=== PATIENT | male | born 1965 | race Caucasian/White ===

== ENCOUNTER 2019-09-01 20:33 | Emergency (ER) | payer BC ==
[~2019-09-01 20:33] MED LIST: GABA-531 PO
[2019-09-01] MEDS ORDERED: MORPHINE SULFATE 4 MG/1ML SYG ONE (23:47)
== END 2019-09-02 00:19 | disposition home or self-care (01) ==
LOC: EDH 20:33
DX: M54.16 Radiculopathy, lumbar region (principal); M51.36 Other intervertebral disc degeneration, lumbar region; Z98.890 Other specified postprocedural states
CPT/HCPCS: 72148; 96372; 99284; J2270